=== PATIENT | male | born 1985 | race African-American/Black ===

== ENCOUNTER 2018-07-10 07:06 | Emergency (ER) | payer SELFPAY ==
[~2018-07-10] VITALS: Ht 177.8 cm; Wt 82.0 kg
[2018-07-10 08:32] VITALS: BP 137/94
== END 2018-07-10 08:45 | disposition home or self-care (01) ==
LOC: ER 07:06
DX: H10.9 Unspecified conjunctivitis (principal); R03.0 Elevated blood-pressure reading, without diagnosis of hypertension; F17.210 Nicotine dependence, cigarettes, uncomplicated; F12.90 Cannabis use, unspecified, uncomplicated
CPT/HCPCS: 99283